=== PATIENT | female | born 1965 | race Hispanic/Latino ===

== ENCOUNTER 2017-09-05 14:24 | Day surgery (SDC) | payer MEDICAID, OTHER ==
[2017-09-05] VITALS (9 sets, daily range): BP systolic 110–124; BP diastolic 50–58
[~2017-09-05] VITALS: Ht 157.5 cm; Wt 196.9 kg
[2017-09-05] MEDS ORDERED: ISOVUE-300 100 ML VIAL IV ONE (18:06)
[2017-09-05] MEDS ORDERED: SODIUM BICARB 50MEQ 50ML VIAL ONE (18:06)
[2017-09-05] MEDS ORDERED: LIDOCAINE HCL 2% 20ML ONE (18:06)
== END 2017-09-05 21:15 ==
LOC: DAH 14:24
PROVIDERS: ATTEND Internal Medicine Nephrology
DX: J96.00 Acute respiratory failure, unspecified whether with hypoxia or hypercapnia (principal); N39.0 Urinary tract infection, site not specified; B96.89 Other specified bacterial agents as the cause of diseases classified elsewhere; E11.22 Type 2 diabetes mellitus with diabetic chronic kidney disease; I13.2 Hypertensive heart and chronic kidney disease with heart failure and with stage 5 chronic kidney disease, or end stage renal disease; N18.6 End stage renal disease; I50.31 Acute diastolic (congestive) heart failure; G47.33 Obstructive sleep apnea (adult) (pediatric); E78.5 Hyperlipidemia, unspecified; E66.2 Morbid (severe) obesity with alveolar hypoventilation; E03.9 Hypothyroidism, unspecified; Z99.89 Dependence on other enabling machines and devices
CPT/HCPCS: 36558; 36589; 77001; 82948 ×2; A4606; C1750; C1894; J1644; J3490 ×2; Q9967